=== PATIENT | male | born 1965 | race Caucasian/White ===

== ENCOUNTER → 2023-03-10 | Outpatient (CLI) | payer BC ==
--- NOTE | 2023-03-10 11:51 | CT ---
"EXAMINATION TYPE: CT chest w con DATE OF EXAM: 03/10/2023 COMPARISON: 12/18/2022 HISTORY: ABNORMAL LUNG FINDINGS CT DLP: 363.5 mGycm, Automated exposure control for dose reduction was used. CONTRAST: Performed injected with 100 mL of Isovue 300. TECHNIQUE: Axial images were obtained at 5 mm thick sections. Reconstructed images are reviewed on [employer] computer in the coronal plane. FINDINGS: Portion of the thyroid visualized is normal. Mild emphysematous changes are present. There is a suspicious 2.5 x 2.1 cm cavitary lesion within the posterior lateral right lung. Series 4 image 37. Previous density within the peripheral lingula has resolved. Previous superior segment left upper lob e density has resolved. No enlarged mediastinal or hilar adenopathy is evident. The ascending aorta diameter at the level o f the main pulmonary artery is 3.0 cm. The main pulmonary artery diameter at the bifurcation is 2.[address] sections are obtained through the upper abdomen. Abdomen is essentially unremarkable. IMPRESSION: 1. Spiculated nodule posterior lateral right lung suggestive for neoplasm. PET/CT recommended for add itional workup A Yellow level critical message alert has been initiated for Tremayne Lai MD~[id number] via the [employer] | Critical Results System on 03/10/2023 11:48 AM. This message alert has been sent to Tremayne sanford MD~[id number] via the preferences provided by the clinician for the receipt of Radiology Critical F indings. Message ID [id number]."
== END | disposition home or self-care (01) ==
LOC: RADCTMAIN 08:22
PROVIDERS: ATTEND Internal Medicine
DX: R91.8 Other nonspecific abnormal finding of lung field (principal)
CPT/HCPCS: 71260; Q9967